=== PATIENT | female | born 1995 | race African-American/Black ===

== ENCOUNTER 2022-11-12 06:44 | Day surgery (SDC) | payer OTHER ==
[~2022-11-12] VITALS: Ht 172.7 cm; Wt 99.8 kg
[2022-11-12] MEDS ORDERED: fentaNYL citrate 0.05 MG/ML VIAL ONE (07:36)
[2022-11-12] MEDS ORDERED: diphenhydrAMINE 50 MG/ML VIAL ONE (07:36)
[2022-11-12] MEDS ORDERED: MIDAZOLAM 5 MG/5 ML VIAL ONE (07:36)
[2022-11-12] MEDS ORDERED: LIDOCAINE 2% 100 MG/5 ML UJET TP ONE ×2 (07:37→10:25)
[2022-11-12] MEDS ORDERED: MIDAZOLAM 2 MG/2 ML VIAL IVP ONE (10:25)
[2022-11-12] MEDS ORDERED: fentaNYL citrate 0.05 MG/ML VIAL IVP ONE (10:25)
[2022-11-12] MEDS ORDERED: diphenhydrAMINE 50 MG/ML VIAL IVP ONE (10:25)
== END 2022-11-12 09:17 | disposition home or self-care (01) ==
LOC: MDS 06:44 → MMU 06:45 → MDS 09:17
PROVIDERS: ATTEND Internal Medicine Gastroenterology
DX: R19.7 Diarrhea, unspecified (principal); K50.90 Crohn's disease, unspecified, without complications; K50.818 Crohn's disease of both small and large intestine with other complication; E03.9 Hypothyroidism, unspecified; Z80.0 Family history of malignant neoplasm of digestive organs; Z88.1 Allergy status to other antibiotic agents; Z79.899 Other long term (current) drug therapy
CPT/HCPCS: 45380; J1200; J2250; J3010

== ENCOUNTER 2023-11-11 20:46 | Emergency (ER) | payer MEDICAID, OTHER ==
[~2023-11-11] VITALS: Ht 172.7 cm; Wt 113.4 kg
[2023-11-11 21:08] VITALS: BP 122/67; PULSE 68; RESP 16; TEMP 97.8; O2SAT 100
[2023-11-11 23:54] LABS: BASOPHILS # (AUTO) 0.1 K/uL (0.00-0.22); BASOPHILS % (AUTO) 0.7 % (0.0-2.0); EOSINOPHILS # (AUTO) 0.4 K/uL (0-0.4); EOSINOPHILS % (AUTO) 3.7 % (0.0-4.0); HEMATOCRIT 29.5 % (36-48); HEMOGLOBIN 9.1 g/dL (12.0-16.0); LYMPHOCYTES # (AUTO) 1.8 K/uL (2.5-16.5); LYMPHOCYTES % (AUTO) 16.3 % (20.5-51.1); MEAN CORPUSCULAR HEMOGLOBIN 20 pg (27-31); MEAN CORPUSCULAR HGB CONC 31 g/dL (33-37); MEAN CORPUSCULAR VOLUME 64.3 fL (80-94); MONOCYTES # (AUTO) 0.5 K/uL (0.8-1.0); MONOCYTES % (AUTO) 4.8 % (1.7-9.3); NEUTROPHILS # (AUTO) 8.1 K/uL (1.8-7.7); NEUTROPHILS % (AUTO) 74.5 % (42.2-75.2); PLATELET COUNT (AUTO) 331 K/uL (140-450); RED CELL DISTRIBUTION WIDTH 20.5 % (11.6-13.7); WHITE BLOOD COUNT (AUTO) 10.9 K/uL (4.8-10.8)
[2023-11-12 00:12] LABS: ANION GAP 11.1 (8-16); CALCIUM 9.2 mg/dL (8.5-10.1); CARBON DIOXIDE 25.8 mmol/L (21-32); POTASSIUM 3.9 mmol/L (3.5-5.1)
[2023-11-12 00:16] LABS: TOTAL BILIRUBIN 0.2 mg/dL (0.0-1.0)
[2023-11-12 00:17] LABS: ALBUMIN 3.4 g/dL (3.4-5.0); BILIRUBIN,DIRECT 0.1 mg/dL (0.0-0.3); TOTAL PROTEIN, SERUM 8.6 g/dL (6.4-8.2)
[2023-11-12 01:05] VITALS: O2SAT 100
[2023-11-12] MEDS: NACL 0.9% 1,000 ML IV ONE (01:09)
[2023-11-12] MEDS ORDERED: ONDANSETRON 4 MG/2 ML VIAL ONE (01:19)
[2023-11-12] MEDS: ONDANSETRON 4 MG/2 ML VIAL IVP ONE ×2 (01:25→03:48)
[2023-11-12] MEDS: MORPHINE SULFATE 4 MG/ML SYR IVP ONE (01:33)
[2023-11-12 01:35] LABS: APPEARANCE,URINE CLEAR (CLEAR); BILIRUBIN,URINE NEGATIVE (NEGATIVE); BLOOD, URINE NEGATIVE (NEGATIVE); COLOR,URINE YELLOW (YELLOW); LEUKOCYTE ESTERASE ,URINE NEGATIVE (NEGATIVE); NITRITE, URINE NEGATIVE (NEGATIVE); PROTEIN,URINE NEGATIVE (NEGATIVE); UGLUCOSE NEGATIVE (NEGATIVE); UROBILINOGEN,URINE 0.2 EU/dL (0.2 - 1)
[2023-11-12] MEDS: KETOROLAC 30 MG/ML VIAL IVP ONE (03:46)
[2023-11-12 03:48] VITALS: O2SAT 100
[2023-11-12 03:49] VITALS: BP 114/59; PULSE 52; RESP 20; O2SAT 99
[2023-11-12] MEDS ORDERED: ONDA-188 PO (05:03)
== END 2023-11-12 05:09 | disposition home or self-care (01) ==
LOC: MED 20:46
DX: K50.90 Crohn's disease, unspecified, without complications (principal); D64.9 Anemia, unspecified; Z76.5 Malingerer [conscious simulation]; F31.9 Bipolar disorder, unspecified; Z98.890 Other specified postprocedural states; Z79.899 Other long term (current) drug therapy; Z88.1 Allergy status to other antibiotic agents
CPT/HCPCS: 36415; 74177; 80048; 80076; 81003; 81025; 83690; 85025; 96361; 96374; 96375; 96376; 99285; J1885; J2270; J2405; J7030; Q0163; Q9967